=== PATIENT | male | born 1970 | race Caucasian/White ===

== ENCOUNTER 2016-11-29 07:06 | Day surgery (SDC) | payer BC ==
[2016-11-27 08:55] VITALS: BMI 35.6
[~2016-11-29 07:06] MED LIST: DEXAMETHASONE SOD PHOSPHATE 10 MG/ML 1 ML VIAL IV ONE; FAMOTIDINE 20 MG/2 ML VIAL IV ONE; LACTATED RINGERS 1,000 ML IV SCH; MIDAZOLAM 2 MG/2 ML VIAL IV PRN; ONDANSETRON 4 MG/2 ML VIAL IVP ONE; Pre Op ABX Message 1 EACH MISC MISCELLANE ONE
[2016-11-29] MEDS ORDERED: LIDOCAINE 1% 20 ML VIAL (10MG/ML) FOR IV START INTRADERMA ONE (07:47)
[2016-11-29] MEDS ORDERED: LIDOCAINE 1% INJ 10MG/ML (20 ML MDV) ONE (08:25)
[2016-11-29] MEDS ORDERED: PROPOFOL 10 MG/ML 20 ML VIAL IV ONE (08:25)
[2016-11-29] MEDS ORDERED: fentaNYL (PF) 50 MCG/ML 2 ML AMP ONE (08:25)
[2016-11-29] MEDS ORDERED: SUCCINYLCHOLINE CHLORIDE VIAL 200 MG/10 ML VIAL IV ONE (08:25)
[2016-11-29] MEDS ORDERED: CIPROFLOXACIN-DEXAMETH 0.3-0.1% DROPS 7.5 ML BTL BOTH EARS ONE (08:45)
[2016-11-29 09:17] VITALS: TEMP 98.7
--- NOTE | 2016-11-29 09:20 | P.OP ---
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 His audiogram demonstrates a conductive hearing loss. 2 placement was recommended. Operative Findings: Patient had a bilateral middle ear effusion and a left-sided retraction pocket. A CAT scan is recommended. 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 Description of Procedure: Prior to surgery, all risks, benefits, and alternative therapies were discussed again with the patient and family. Risks of bleeding, need for second tubes, perforation, early extrusion of tubes, etc. etc. were explained. All questions were answered and a consent was obtained. This patient was taken to the operative room and placed in the supine position. Mask inhalation anesthesia was performed by the department of anesthesia. The patient was monitored throughout the entire case by the department of anesthesia. Both tympanic membranes were visualized with an operating Zeiss microscope. Cerumen and epithelial debris was removed from the external auditory canals bilaterally. The tympanic membranes were visualized under an operative microscope. Tympanostomy incisions were made inferiorly. Fluid was suctioned from the middle ear space with use of a #3 and #5 Tse suction with care to avoid any trauma to the middle ear structures. Ventilation tubes ( TRIUNE) were then inserted bilaterally. Excellent placement was obtained. The patient was then taken to the recovery room in excellent condition by the department of anesthesia and monitored through the recovery process by the recovery room nurse supervised by anesthesia. A follow-up appointment has been scheduled.
[2016-11-29] MEDS: HYDROmorphone 1 MG/ML 1 ML SYRINGE IVP PRN ×2 (09:24→09:30)
[2016-11-29 09:34] VITALS: RESP 16
[2016-11-29 10:03] VITALS: BP 153/80; PULSE 89
== END 2016-11-29 10:25 | disposition home or self-care (01) ==
LOC: OR 07:06
PROVIDERS: ATTEND Otolaryngology
DX: H65.22 Chronic serous otitis media, left ear (principal); H66.3X1 Other chronic suppurative otitis media, right ear; H73.892 Other specified disorders of tympanic membrane, left ear; H74.22 Discontinuity and dislocation of left ear ossicles; H90.2 Conductive hearing loss, unspecified; H69.93 Unspecified Eustachian tube disorder, bilateral; K21.9 Gastro-esophageal reflux disease without esophagitis; H74.02 Tympanosclerosis, left ear; Z79.899 Other long term (current) drug therapy; Z87.891 Personal history of nicotine dependence
CPT/HCPCS: 69436; J0330; J1100; J2405; J2001; J3010; J1170; J2704

== ENCOUNTER → 2017-01-23 | Outpatient (CLI) | payer BC ==
--- NOTE | 2017-01-23 16:37 | CT ---
EXAMINATION TYPE: CT iac wo con DATE OF EXAM: 01/23/2017 COMPARISON: NONE HISTORY: Left sided hearing loss CT DLP: 150mGycm Automated exposure control for dose reduction was used. FINDINGS: There is a 1.4 cm retention cyst or polyp involving the right maxillary antrum. Both infund ibula are patent. Soft tissues are otherwise unremarkable. Visualized intracranial structures are normal. There is no widening of the porus acusticus on either side. No definite CP angle mass lesion is seen. Middle and inner ear structures are normal. The masto id air cells are clear. IMPRESSION: 1. NO EVIDENCE OF A CP ANGLE MASS LESION OR WIDENING OF THE PORUS ACOUSTICAL ON EITHER SIDE. IF THERE IS STRONG CLINICAL SUSPICION OF AN ACOUSTIC SCHWANNOMA AN MRI OF THE IACS WOULD BE SUGGESTED. 2. RIGHT MAXILLARY SINUS MUCOSAL DISEASE.
== END | disposition home or self-care (01) ==
LOC: RADCTMAIN 15:32
PROVIDERS: ATTEND Otolaryngology
DX: H93.19 Tinnitus, unspecified ear (principal); H91.90 Unspecified hearing loss, unspecified ear; H71.90 Unspecified cholesteatoma, unspecified ear; H73.892 Other specified disorders of tympanic membrane, left ear
CPT/HCPCS: 70480

== ENCOUNTER → 2017-01-31 | Outpatient (CLI) | payer BC ==
--- NOTE | 2017-01-31 12:42 | CT ---
EXAMINATION TYPE: CT soft tissue neck w con DATE OF EXAM: 01/31/2017 HISTORY: Patient complains of left side submandibular swelling. COMPARISON: NONE CT DLP: 1093 mGycm. Automated Exposure Control for Dose Reduction was Utilized. TECHNIQUE: CT scan of the neck is performed with IV Contrast, patient injected with 100 mL of Omnipa que 300, axial images are obtained, coronal and sagittal reformatted images are reviewed. FINDINGS: Airway: No gross abnormality seen. Parotid/submandibular glands: Parotid and submandibular glands are symmetric and felt within normal l imits. Mild skin thickening is present bilaterally. Metallic BB is placed at area of clinical concern left submandibular region on axial image 31. There is slightly prominent draining vein at this level . There is prominent but benign appearing lymph node anterior and superior to left submandibular glan d measuring 13 x 6 mm at this level. Near BB there is ill-defined fat and fluid seen best on axial im age 33 and coronal image 31 suspicious for soft tissue infection or cellulitis. Clinical correlation advised. No well-formed fluid collection or abscess is seen. Carotid/Vascular Structures: No significant plaque or stenosis is evident. Osseous Structures: There is anterior fusion plate with ossific fusion C5-C6 level. Mild anterior spu rring C4-C5 level is seen. Other: No greater than 1 cm neck adenopathy is seen bilaterally. IMPRESSION: Suspect small focal area of cellulitis or soft tissue infection at area of patient's conc kirill, clinical correlation advised.
== END | disposition home or self-care (01) ==
LOC: RADCTMAIN 11:48
PROVIDERS: ATTEND Otolaryngology
DX: R22.1 Localized swelling, mass and lump, neck (principal)
CPT/HCPCS: 70491; Q9967